=== PATIENT | female | born 1990 | race Caucasian/White ===

== ENCOUNTER 2018-09-16 15:48 | Emergency (ER) | payer SELFPAY ==
[2018-09-16] MEDS ORDERED: IPRATROPIUM/ALBUTEROL 3 ML VIAL NEB ONE (16:00)
[2018-09-16] MEDS: IPRATROPIUM/ALBUTEROL 3 ML VIAL NEB ONE (16:03)
--- NOTE | 2018-09-16 16:26 | ED.PDOC ---
History of Present Illness - General Chief Complaint: Respiratory Problem Stated Complaint: SOB Time Seen by Provider: 09/16/18 16:23 Source: patient Exam Limitations: no limitations - History of Present Illness Comments: Bettina Walter 28 y/o female came to ER with SOB,nasal congestion since yesterday.Has history of asthma and have not use her MDI for the last 10 years Timing/Duration: yesterday Cough Quality/Degree: mild Possible Cause: no prior episodes, allergen exposure Improving Factors: nothing Worsening Factors: nothing Associated Symptoms: shortness of breath, other - see hpi Allergies/Adverse Reactions: Allergies NO KNOWN ALLERGY Allergy (Verified 09/16/18 15:59) Home Medications: Ambulatory Orders Albuterol Sulfate [Albuterol Sulfate Hfa] 108 mcg IN Q4HR PRN #1 aer 09/16/18 predniSONE 10 mg PO BID 7 Days #14 tab 09/16/18 Review of Systems - Review of Systems Respiratory: States: see HPI All other Systems: Reviewed and Negative, No Change from Baseline Past Medical History (General) - Patient Medical History Hx Stroke: No Hx Asthma: Yes - Child, no exacerbations on 10 years Hx of COPD: No Hx Congestive Heart Failure: No Hx Hypertension: No Hx Diabetes: No Surgical History: other - hysterectomy - Vaccination History Hx Tetanus, Diphtheria Vaccination: No Hx Influenza Vaccination: No Hx Pneumococcal Vaccination: No Immunizations Up to Date: No - Social History Hx Tobacco Use: Yes Hx Alcohol Use: Yes Hx Substance Use: No Hx Substance Use Treatment: No Hx Depression: No - Female History Patient is a Female of Child Bearing Age (10 -59 yrs old): Yes Patient : No - Hysterctomy Family Medical History - Family History Mother Family History: Unknown Living Status: Unknown Physical Exam - Physical Exam General Appearance: Alert, Comfortable, No apparent distress Eye Exam: bilateral normal ENT Exam: normal ENT inspection, hearing grossly normal, pharynx normal, nasal congestion Neck: non-tender, full range of motion, supple, normal inspection, trachea midline Respiratory: chest non-tender, no respiratory distress, wheezing Cardiovascular/Chest: normal peripheral pulses, regular rate, rhythm, no murmur Gastrointestinal/Abdominal: normal bowel sounds, non tender, soft Extremity: no pedal edema, no calf tenderness Neurologic: alert, oriented x 3 Skin Exam: normal color, warm/dry Progress - Progress Progress: 09/16/18 16:49 Vital Signs - 24 hr 09/16/18 09/16/18 15:50 16:04 Temperature 97 F L Pulse Rate 66 Pulse Rate [L 80 finger] Respiratory 20 22 Rate Blood Pressure 112/76 [L arm] O2 Sat by Pulse 99 98 Oximetry 09/16/18 17:09 wheezing relieved after 2 nebulizer treatments - EKG/XRAY/CT XRAY: chest - normal Departure - Departure Clinical Impression: Asthma Qualifiers: Asthma severity: unspecified severity Asthma persistence: unspecified Asthma complication type: with acute exacerbation Qualified Code(s): J45.901 - Unspecified asthma with (acute) exacerbation Time of Disposition: 17:05 Disposition: Discharge to Home or Self Care Condition: Good Departure Forms: ED Discharge - Pt. Copy, Patient Portal Self Enrollment Instructions: Asthma, Adult (DC) Prescriptions: Albuterol Sulfate [Albuterol Sulfate Hfa] 108 mcg IN Q4HR PRN #1 aer PRN Reason: Wheezing predniSONE 10 mg PO BID 7 Days #14 tab Home Medications: Ambulatory Orders Albuterol Sulfate [Albuterol Sulfate Hfa] 108 mcg IN Q4HR PRN #1 aer 09/16/18 predniSONE 10 mg PO BID 7 Days #14 tab 09/16/18 Additional Instructions: Return to ER as needed
[2018-09-16] MEDS: methylPREDNISolone SODIUM SUC 125 MG/2 ML VIAL IM ONE (16:36)
--- NOTE | 2018-09-16 16:49 | RAD ---
EXAM DESCRIPTION: Chest,1 View CLINICAL HISTORY: sob COMPARISON: None available TECHNIQUE: AP portable chest FINDINGS: The lungs are clear. There is no infiltrate or effusion. The heart is normal size. IMPRESSION: Normal portable chest Electronically signed by: Yoseph Glasgow MD 09/16/2018 4:47 PM CDT
[2018-09-16] MEDS: LEVALBUTEROL NEBS 1.25 MG/3 ML VIAL NEB ONE (17:13)
[2018-09-16 17:34] VITALS: BP 97/63; TEMP 96.9; O2SAT 99
== END 2018-09-16 17:34 | disposition home or self-care (01) ==
LOC: ER 15:48
DX: J45.901 Unspecified asthma with (acute) exacerbation (principal); Z87.891 Personal history of nicotine dependence
CPT/HCPCS: 71045; 94640; J2930; J7614; J7620

== ENCOUNTER 2018-10-17 18:38 | Emergency (ER) | payer SELFPAY ==
[2018-10-17 18:54] VITALS: BP 99/75; TEMP 97.9; O2SAT 98
[2018-10-17] MEDS ORDERED: IPRATROPIUM/ALBUTEROL 3 ML VIAL NEB ONE (18:54)
[2018-10-17] MEDS ORDERED: MONTELUKAST 10 MG TAB PO ONE (18:54)
[2018-10-17] MEDS ORDERED: predniSONE 20 MG TAB PO ONE (18:54)
--- NOTE | 2018-10-17 18:58 | ED.PDOC ---
History of Present Illness - General Chief Complaint: Respiratory Problem Stated Complaint: allergies induced asthma, bump right arm pit Time Seen by Provider: 10/17/18 18:51 Source: patient Exam Limitations: no limitations - History of Present Illness Initial Comments: the patient is a 28-year-old female presenting to emergency room secondary hilaria asthma and allergy flare for the last 3 or 4 days. She has been taking pjsi-kfi-[id number] antihistamines but has been unable to afford an inhaler or other medications. No fever. She has a runny nose. She has had this happen to her multiple times. Timing/Duration: other - 3or4 days Severity: moderate Improving Factors: nothing Worsening Factors: nothing Associated Symptoms: shortness of breath Allergies/Adverse Reactions: Allergies NO KNOWN ALLERGY Allergy (Verified 09/16/18 15:59) Home Medications: Ambulatory Orders Albuterol Sulfate [Albuterol Sulfate Hfa] 108 mcg IN Q4HR PRN #1 aer 09/16/18 predniSONE 10 mg PO BID 7 Days #14 tab 09/16/18 Albuterol Inhaler [Ventolin Hfa Inhaler] 2 puff INH Q4H PRN #1 inh 10/17/18 Montelukast [Singulair] 10 mg PO DAILY #30 tab 10/17/18 predniSONE [Prednisone] 20 mg PO DAILY #5 tab 10/17/18 Review of Systems - Review of Systems Constitutional: States: malaise EENTM: States: nose congestion Respiratory: States: cough, short of breath, wheezing Cardiology: States: no symptoms reported Gastrointestinal/Abdominal: States: no symptoms reported Genitourinary: States: no symptoms reported Musculoskeletal: States: no symptoms reported Skin: States: no symptoms reported Neurological: States: no symptoms reported Endocrine: States: no symptoms reported All other Systems: No Change from Baseline Past Medical History (General) - Patient Medical History Hx Stroke: No Hx Asthma: Yes - Child, no exacerbations on 10 years Hx of COPD: No Hx Congestive Heart Failure: No Hx Hypertension: No Hx Diabetes: No - Vaccination History Hx Tetanus, Diphtheria Vaccination: No Hx Influenza Vaccination: No Hx Pneumococcal Vaccination: No - Social History Hx Tobacco Use: Yes Hx Alcohol Use: Yes Hx Substance Use: No Hx Substance Use Treatment: No Hx Depression: No - Female History Patient : No - Hysterctomy Family Medical History - Family History Mother Family History: Unknown Living Status: Unknown Physical Exam - Physical Exam General Appearance: Alert, Anxious, No apparent distress Eye Exam: bilateral normal Ears, Nose, Throat: hearing grossly normal, nasal congestion Neck: full range of motion, supple Respiratory: no accessory muscle use - mildoderate, respiratory distress, wheezing Cardiovascular/Chest: normal peripheral pulses, regular rate, rhythm, no edema Peripheral Pulses: radial,right: 2+, radial,left: 2+, dorsalis pedis,right: 2+, dorsalis pedis,left: 2+ Gastrointestinal/Abdominal: non tender, soft Rectal Exam: deferred Back Exam: no CVA tenderness, no vertebral tenderness Extremity: non-tender, normal inspection, no pedal edema, normal capillary refill 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 She is going to be given 2 DuoNeb treatments a dose of prednisone and a dose of Singulair. She'll be written for prednisone for 5 days and Singulair for the next month. She'll be written for an albuterol inhaler to get filled and use as she needs it. She is to follow up with her primary care doctor. She can continue to take vgly-ure-tejtiap antihistamine such as Zyrtec. A humidifier at night may also help reduce symptoms. ER warnings were given for any significant worsening. Departure - Departure Clinical Impression: Seasonal allergies Asthma with exacerbation Qualifiers: Asthma severity: moderate Asthma persistence: persistent Qualified Code(s): J45.41 - Moderate persistent asthma with (acute) exacerbation Disposition: Discharge to Home or Self Care Condition: Fair Departure Forms: ED Discharge - Pt. Copy, Patient Portal Self Enrollment Instructions: DI for Asthma -- Adult Diet: regular diet Activity: increase activity as tolerated Referrals: UNKNOWN,PHYSICIAN [Primary Care Provider] - 1-2 Weeks Prescriptions: Albuterol Inhaler [Ventolin Hfa Inhaler] 2 puff INH Q4H PRN #1 inh PRN Reason: Shortness Of Breath Montelukast [Singulair] 10 mg PO DAILY #30 tab predniSONE [Prednisone] 20 mg PO DAILY #5 tab Home Medications: Ambulatory Orders Albuterol Sulfate [Albuterol Sulfate Hfa] 108 mcg IN Q4HR PRN #1 aer 09/16/18 predniSONE 10 mg PO BID 7 Days #14 tab 09/16/18 Albuterol Inhaler [Ventolin Hfa Inhaler] 2 puff INH Q4H PRN #1 inh 10/17/18 Montelukast [Singulair] 10 mg PO DAILY #30 tab 10/17/18 predniSONE [Prednisone] 20 mg PO DAILY #5 tab 10/17/18 Additional Instructions: the patient is a 28-year-old emale presenting to the emergency room secondary to an asthma exacerbation triggered by allergies. She is going to be given 2 DuoNeb treatments a dose of prednisone and a dose of Singulair. She'll be written for prednisone for 5 days and Singulair for the next month. She'll be written for an albuterol inhaler to get filled and use as she needs it. She is to follow up with her primary care doctor. She can continue to take mjzb-ejv-hzxdekx antihistamine such as Zyrtec. A humidifier at night may also help reduce symptoms. ER warnings were given for any significant worsening.
== END 2018-10-17 19:25 | disposition home or self-care (01) ==
LOC: ER 18:38
DX: J45.41 Moderate persistent asthma with (acute) exacerbation (principal); J30.2 Other seasonal allergic rhinitis; L08.9 Local infection of the skin and subcutaneous tissue, unspecified; Z87.891 Personal history of nicotine dependence
CPT/HCPCS: 94640; 99284; J7512; J7620

== ENCOUNTER 2018-10-21 19:26 | Emergency (ER) | payer SELFPAY ==
--- NOTE | 2018-10-22 03:48 | ED.PDOC ---
History of Present Illness - General Chief Complaint: General Stated Complaint: LWBS - History of Present Illness Allergies/Adverse Reactions: Allergies NO KNOWN ALLERGY Allergy (Verified 09/16/18 15:59) Home Medications: Ambulatory Orders Albuterol Sulfate [Albuterol Sulfate Hfa] 108 mcg IN Q4HR PRN #1 aer 09/16/18 predniSONE 10 mg PO BID 7 Days #14 tab 09/16/18 Albuterol Inhaler [Ventolin Hfa Inhaler] 2 puff INH Q4H PRN #1 inh 10/17/18 Montelukast [Singulair] 10 mg PO DAILY #30 tab 10/17/18 Sulfa/Trimeth 800/160 (Ds) Tab [Bactrim DS Tab] 1 ea PO DAILY #10 tab 10/17/18 predniSONE [Prednisone] 20 mg PO DAILY #5 tab 10/17/18 Past Medical History (General) - Patient Medical History Hx Seizures: No Hx Stroke: No Hx Dementia: No Hx Asthma: Yes - Child, no exacerbations on 10 years Hx of COPD: No Hx Cardiac Disorders: No Hx Congestive Heart Failure: No Hx Pacemaker: No Hx Hypertension: No Hx Thyroid Disease: No Hx Diabetes: No Hx Gastroesophageal Reflux: No Hx Renal Disease: No Hx Cancer: No Hx of HIV: No Hx Hepatitis C: No Hx MRSA: No - Vaccination History Hx Tetanus, Diphtheria Vaccination: No Hx Influenza Vaccination: No Hx Pneumococcal Vaccination: No - Social History Hx Tobacco Use: Yes Hx Chewing Tobacco Use: No Hx Alcohol Use: Yes Hx Substance Use: No Hx Substance Use Treatment: No Hx Depression: No Hx Physical Abuse: No Hx Emotional Abuse: No Hx Suspected Abuse: No - Female History Patient : No - Hysterctomy Family Medical History - Family History Mother Family History: Unknown Living Status: Unknown Departure - Departure Clinical Impression: Patient left without being seen Time of Disposition: 03:43 Disposition: Left Without Being Seen Departure Forms: ED Discharge - Pt. Copy, Patient Portal Self Enrollment Referrals: UNKNOWN,PHYSICIAN [Primary Care Provider] - 1-2 Weeks Home Medications: Ambulatory Orders Albuterol Sulfate [Albuterol Sulfate Hfa] 108 mcg IN Q4HR PRN #1 aer 09/16/18 predniSONE 10 mg PO BID 7 Days #14 tab 09/16/18 Albuterol Inhaler [Ventolin Hfa Inhaler] 2 puff INH Q4H PRN #1 inh 10/17/18 Montelukast [Singulair] 10 mg PO DAILY #30 tab 10/17/18 Sulfa/Trimeth 800/160 (Ds) Tab [Bactrim DS Tab] 1 ea PO DAILY #10 tab 10/17/18 predniSONE [Prednisone] 20 mg PO DAILY #5 tab 10/17/18
== END 2018-10-21 21:00 | disposition left against medical advice (07) ==
LOC: ER 19:26
DX: S99.922A Unspecified injury of left foot, initial encounter (principal); Z53.21 Procedure and treatment not carried out due to patient leaving prior to being seen by health care provider

== ENCOUNTER 2018-12-02 13:37 | Emergency (ER) | payer SELFPAY ==
[2018-12-02] MEDS: SODIUM CHLORIDE 0.9% 1000ML 1,000 ML IVS ONE (14:27)
[2018-12-02] MEDS: ONDANSETRON ODT 8 MG TAB SL ONE (14:28)
--- NOTE | 2018-12-02 14:34 | RAD ---
PROVIDED CLINICAL HISTORY/REASON FOR EXAM: sob, nvd COMPARISON: September 16, 2018 FINDINGS: Frontal and lateral chest radiographs Heart size and pulmonary vessels are within normal limits. There is no pneumothorax or pleural effusion. The lungs are clear bilaterally. The soft tissues are unremarkable. No acute osseous findings. IMPRESSION: No acute cardiopulmonary abnormality. Electronically signed by: Domo Andrew MD 12/02/2018 2:32 PM CDT
[2018-12-02] MEDS ORDERED: IPRATROPIUM/ALBUTEROL 3 ML VIAL NEB ONE (14:39)
[2018-12-02] MEDS: IPRATROPIUM/ALBUTEROL 3 ML VIAL NEB ONE ×2 (14:56→16:09)
[2018-12-02] MEDS: predniSONE 20 MG TAB PO ONE (15:03)
[2018-12-02 15:07] VITALS: TEMP 97.1
--- NOTE | 2018-12-02 15:59 | ED.PDOC ---
History of Present Illness - General Chief Complaint: GI Problem Stated Complaint: diarrhea Time Seen by Provider: 12/02/18 13:40 Source: patient Exam Limitations: no limitations - History of Present Illness Initial Comments: the patient is a 28-year-old female presenting to the emergency room secondary to essentially an asthma exacerbation and gastroenteritis. The p atient has had 3-4 days of an asthma exacerbation. She does not have any asthma medications. She has moderate increased work of breathing and wheezes that can be heard across the room. She has been having some nausea and vomiting and diarrhea for the last 3-4 days. More diarrhea and vomiting. No blood. No definite fevers. Her significant other has similar symptoms. No abdominal pain.the patient is moderately hypotensive here and has been having some dizziness. Timing/Duration: other - 3-4 days Severity: moderate Improving Factors: nothing Worsening Factors: movement Associated Symptoms: loss of appetite, malaise, nausea/vomiting, weakness Allergies/Adverse Reactions: Allergies NO KNOWN ALLERGY Allergy (Verified 12/02/18 14:41) Home Medications: Ambulatory Orders Albuterol Inhaler [Ventolin Hfa Inhaler] 2 puff INH Q4H PRN #1 inh 12/02/18 Montelukast [Singulair] 10 mg PO DAILY #30 tab 12/02/18 Ondansetron Odt [Zofran ODT] 4 mg PO Q8HR PRN #5 tab 12/02/18 predniSONE [Prednisone] 20 mg PO DAILY #3 tab 12/02/18 Review of Systems - Review of Systems Constitutional: States: malaise, weakness EENTM: States: throat pain Respiratory: States: no symptoms reported Cardiology: States: no symptoms reported Gastrointestinal/Abdominal: States: diarrhea, nausea, vomiting Genitourinary: States: no symptoms reported Musculoskeletal: States: no symptoms reported Skin: States: no symptoms reported Neurological: States: headache - mild Endocrine: States: no symptoms reported All other Systems: No Change from Baseline Past Medical History (General) - Patient Medical History Hx Seizures: No Hx Stroke: No Hx Dementia: No Hx Asthma: Yes Hx of COPD: No Hx Cardiac Disorders: No Hx Congestive Heart Failure: No Hx Pacemaker: No Hx Hypertension: No Hx Thyroid Disease: No Hx Diabetes: No Hx Gastroesophageal Reflux: No Hx Renal Disease: No Hx Cancer: No Hx of HIV: No Hx Hepatitis C: No Hx MRSA: No Surgical History: Hysterectomy - Vaccination History Hx Tetanus, Diphtheria Vaccination: Yes Hx Influenza Vaccination: No Hx Pneumococcal Vaccination: No - Social History Hx Tobacco Use: Yes Hx Chewing Tobacco Use: No Hx Alcohol Use: Yes Hx Substance Use: No Hx Substance Use Treatment: No Hx Depression: No Hx Physical Abuse: No Hx Emotional Abuse: No Hx Suspected Abuse: No - Female History Patient : No - Hysterctomy Family Medical History - Family History Mother Family History: Unknown Living Status: Unknown Physical Exam - Physical Exam General Appearance: Alert, No apparent distress, Ill Appearing Eye Exam: bilateral normal Ears, Nose, Throat: hearing grossly normal, normal ENT inspection Neck: full range of motion, supple Respiratory: respiratory distress - mild, decreased breath sounds, accessory muscle use, rhonchi, wheezing Cardiovascular/Chest: normal peripheral pulses, regular rate, rhythm, no edema Peripheral Pulses: radial,right: 2+, radial,left: 2+, dorsalis pedis,right: 2+, dorsalis pedis,left: 2+ Gastrointestinal/Abdominal: non tender, soft Rectal Exam: deferred Back Exam: no CVA tenderness, no vertebral tenderness Extremity: normal range of motion, non-tender, normal inspection, no pedal edema, normal capillary refill Neurologic: compliance 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 II-XII nml as tested, alert, normal mood/affect, oriented x 3 Skin Exam: pallor Comments: Vital Signs - 24 hr 12/02/18 12/02/18 12/02/18 13:51 14:39 14:58 Temperature 96.1 F L Pulse Rate 68 Pulse Rate [ 75 68 Pulse OX] Respiratory 18 18 19 Rate Blood Pressure 94/51 104/70 [L Arm] O2 Sat by Pulse 99 99 99 Oximetry 12/02/18 15:00 Temperature 97.1 F L Pulse Rate Pulse Rate [ 65 Pulse OX] Respiratory 18 Rate Blood Pressure 109/73 [L Arm] O2 Sat by Pulse 98 Oximetry Progress - Progress Progress: 12/02/18 16:01 the patient's a 28-year-old female presenting to the emergency room with acute asthma exacerbation and viral gastroenteritis. The patient does have significant enough dehydration that she was initially moderately hypotensive. She did respond well to a liter of IV fluids. She was also given nausea medications which seemed to help. She responded well also to 2 DuoNeb treatments. The patient will be written for prednisone for 3 days, a Ventolin inhaler and some Singulair for the coming month. She also be written for Zofran for the nausea and vomiting. She can use small doses of Imodium as needed for diarrhea. ER warnings were given for any worsening. Follow up with PCP later in the week. cyril valdez [id number] - Results/Orders Results/Orders: Laboratory Tests 12/02/18 12/02/18 12/02/18 14:00 14:00 14:03 WBC 5.6 RBC 4.53 Hgb 14.5 Hct 42.7 MCV 94.3 MCH 31.9 H MCHC 33.9 RDW 14.0 Plt Count 157 MPV 9.4 Absolute Neuts (auto) 3.10 Absolute Lymphs (auto) 1.60 Absolute Monos (auto) 0.60 Absolute Eos (auto) 0.30 Absolute Basos (auto) 0.00 Neutrophils % 54.6 Lymphocytes % 29.2 Monocytes % 10.4 H Eosinophils % 5.0 Basophils % 0.8 Sodium Potassium Chloride Carbon Dioxide Anion Gap BUN Creatinine BUN/Creatinine Ratio Random Glucose Serum Osmolality Calcium Total Bilirubin AST ALT Alkaline Phosphatase Serum Total Protein Albumin Globulin Albumin/Globulin Ratio Amylase Lipase Urine Color Yellow Urine Appearance Sl cloudy Urine pH 6.0 Ur Specific [place] >= 1.030 Urine Protein Negative Urine Glucose (UA) Negative Urine Ketones Negative Urine Blood Negative Urine Nitrite Negative Urine Bilirubin Negative Urine Urobilinogen 1.0 Ur Leukocyte Esterase Negative Urine RBC 0-1 Urine WBC 0-1 Ur Epithelial Cells 3-5 Calcium Oxalate Crystal 3+ Amorphous Sediment 2+ Urine Bacteria 1+ Urine Mucus Large Urine HCG, Qual Negative Group A Strep Rapid Negative 12/02/18 14:03 WBC RBC Hgb Hct MCV MCH MCHC RDW Plt Count MPV Absolute Neuts (auto) Absolute Lymphs (auto) Absolute Monos (auto) Absolute Eos (auto) Absolute Basos (auto) Neutrophils % Lymphocytes % Monocytes % Eosinophils % Basophils % Sodium 140 Potassium 3.9 Chloride 106 Carbon Dioxide 26 Anion Gap 11.9 L BUN 11 Creatinine 0.79 BUN/Creatinine Ratio 13.9 Random Glucose 79 Serum Osmolality 277.7 Calcium 9.0 Total Bilirubin 0.6 AST 46 H ALT 42 Alkaline Phosphatase 46 Serum Total Protein 7.3 Albumin 3.7 Globulin 3.6 H Albumin/Globulin Ratio 1.0 L Amylase 50 Lipase 48 Urine Color Urine Appearance Urine pH Ur Specific [place] Urine Protein Urine Glucose (UA) Urine Ketones Urine Blood Urine Nitrite Urine Bilirubin Urine Urobilinogen Ur Leukocyte Esterase Urine RBC Urine WBC Ur Epithelial Cells Calcium Oxalate Crystal Amorphous Sediment Urine Bacteria Urine Mucus Urine HCG, Qual Group A Strep Rapid rapid flu is negative. two-view chest x-ray shows no definitive infiltrate. Departure - Departure Clinical Impression: Gastroenteritis Asthma exacerbation Qualifiers: Asthma severity: moderate Asthma persistence: persistent Qualified Code(s): J45.41 - Moderate persistent asthma with (acute) exacerbation Hypotension Qualifiers: Hypotension type: hypotension due to hypovolemia Qualified Code(s): I95.89 - Other hypotension; E86.1 - Hypovolemia Disposition: Discharge to Home or Self Care Condition: Fair Departure Forms: ED Discharge - Pt. Copy, Patient Portal Self Enrollment Instructions: DI for Diarrhea and Traveler's Diarrhea -- Adult, DI for Gastritis, Asthma, Adult (DC) Diet: bland diet Activity: increase activity as tolerated Prescriptions: Ondansetron Odt [Zofran ODT] 4 mg PO Q8HR PRN #5 tab PRN Reason: Nausea--Moderate Albuterol Inhaler [Ventolin Hfa Inhaler] 2 puff INH Q4H PRN #1 inh PRN Reason: Shortness Of Breath Montelukast [Singulair] 10 mg PO DAILY #30 tab predniSONE [Prednisone] 20 mg PO DAILY #3 tab Home Medications: Ambulatory Orders Albuterol Inhaler [Ventolin Hfa Inhaler] 2 puff INH Q4H PRN #1 inh 12/02/18 Montelukast [Singulair] 10 mg PO DAILY #30 tab 12/02/18 Ondansetron Odt [Zofran ODT] 4 mg PO Q8HR PRN #5 tab 12/02/18 predniSONE [Prednisone] 20 mg PO DAILY #3 tab 12/02/18 Additional Instructions: the patient's a 28-year-old female presenting to the emergency room with acute asthma exacerbation and viral gastroenteritis. The patient does have significant enough dehydration that she was initially moderately hypotensive. She did respond well to a liter of IV fluids. She was also given nausea medications which seemed to help. She responded well also to 2 DuoNeb treatments. The patient will be written for prednisone for 3 days, a Ventolin inhaler and some Singulair for the coming month. She also be written for Zofran for the nausea and vomiting. She can use small doses of Imodium as needed for diarrhea. ER warnings were given for any worsening. Follow up with PCP later in the week.
[2018-12-02 16:32] VITALS: BP 98/66; O2SAT 100
== END 2018-12-02 16:25 | disposition home or self-care (01) ==
LOC: ER 13:37
DX: K52.9 Noninfective gastroenteritis and colitis, unspecified (principal); J45.41 Moderate persistent asthma with (acute) exacerbation; I95.89 Other hypotension; E86.1 Hypovolemia; Z87.891 Personal history of nicotine dependence; Z79.899 Other long term (current) drug therapy
CPT/HCPCS: 36415; 71046; 80053; 81001; 81025; 82150; 83690; 85025; 87070; 87502; 87880; 94640; J7030; J7512; J7620

== ENCOUNTER 2018-12-04 12:00 | Emergency (ER) | payer SELFPAY ==
[2018-12-04] MEDS ORDERED: IPRATROPIUM/ALBUTEROL 3 ML VIAL NEB ONE ×2 (12:14→12:53)
[2018-12-04] MEDS ORDERED: SODIUM CHLORIDE 0.9% 1000ML 1,000 ML IVS ONE (12:20)
[2018-12-04] MEDS ORDERED: predniSONE 10 MG TAB PO ONE (12:20)
--- NOTE | 2018-12-04 12:24 | ED.PDOC ---
History of Present Illness - General Chief Complaint: Respiratory Problem Stated Complaint: difficulty breathing,left sided abd pain Time Seen by Provider: 12/04/18 12:13 Source: patient Exam Limitations: no limitations - History of Present Illness Initial Comments: 28 yo F with PMH sig for asthma who presents for wheezing, SOB worsening this morning. Pt was seen in the ED two days ago for similar sx, given prescription for albuterol, zofran, prednisone, singular however does not get paid until Sunday and therefore did not fill them. Pt was doing well with intermittent sx u ntil this morning when sx acutely worsened. Hx of asthma, was well controlled with no medications until this summer when it flared back up and was using medications once a month to control sx. Intermittent mild dry cough. Associated LUQ abd pain she believes is from the intermittent cough and increased WOB, n/v/d. Denies f/c, CP, congestion, runny nose, sore throat, neck pain/stiffness, hematemesis, melena, hematochezia, urinary sx, edema, sick contacts, recent travel. Allergies/Adverse Reactions: Allergies NO KNOWN ALLERGY Allergy (Verified 12/02/18 14:41) Home Medications: Ambulatory Orders Albuterol Inhaler [Ventolin Hfa Inhaler] 2 puff INH Q4H PRN #1 inh 12/02/18 Montelukast [Singulair] 10 mg PO DAILY #30 tab 12/02/18 Ondansetron Odt [Zofran ODT] 4 mg PO Q8HR PRN #5 tab 12/02/18 predniSONE [Prednisone] 20 mg PO DAILY #3 tab 12/02/18 Review of Systems - Review of Systems Constitutional: Denies: chills, fever EENTM: States: no symptoms reported. Denies: ear pain, ear discharge, nose congestion, throat pain Respiratory: States: cough - mild, intermittent, dry, short of breath, wheezing Cardiology: Denies: chest pain, edema, palpitations, syncope Gastrointestinal/Abdominal: States: abdominal pain, diarrhea, nausea, vomiting, other - No blood in stool or vomit Genitourinary: Denies: dysuria, frequency Musculoskeletal: States: no symptoms reported. Denies: muscle stiffness, neck pain Skin: Denies: lesions, rash Neurological: Denies: headache, numbness, weakness Hematologic/Lymphatic: Denies: easy bleeding, swollen glands Past Medical History (General) - Patient Medical History Hx Seizures: No Hx Stroke: No Hx Dementia: No Hx Asthma: Yes Hx of COPD: No Hx Cardiac Disorders: No Hx Congestive Heart Failure: No Hx Pacemaker: No Hx Hypertension: No Hx Thyroid Disease: No Hx Diabetes: No Hx Gastroesophageal Reflux: No Hx Renal Disease: No Hx Cancer: No Hx of HIV: No Hx Hepatitis C: No Hx MRSA: No Surgical History: Hysterectomy - Vaccination History Hx Tetanus, Diphtheria Vaccination: Yes Hx Influenza Vaccination: No Hx Pneumococcal Vaccination: No - Social History Hx Tobacco Use: Yes Hx Chewing Tobacco Use: No Hx Alcohol Use: Yes Hx Substance Use: No Hx Substance Use Treatment: No Hx Depression: No Hx Physical Abuse: No Hx Emotional Abuse: No Hx Suspected Abuse: No - Female History Patient : No - Hysterctomy Family Medical History - Family History Mother Family History: Unknown Living Status: Unknown Physical Exam - Physical Exam General Appearance: Alert, No apparent distress, Well Developed, Well Nourished ENT Exam: normal ENT inspection, other - dry mucous membranes Neck: non-tender, full range of motion, supple Respiratory: no respiratory distress, no accessory muscle use, wheezing - diffuse, other - tachypnea Cardiovascular/Chest: normal peripheral pulses, regular rate, rhythm, no edema, no gallop, no JVD, no murmur Gastrointestinal/Abdominal: non tender, soft, no organomegaly, no pulsatile mass Neurologic: no motor/sensory deficits, alert, oriented x 3 Skin Exam: warm/dry Progress - Progress Progress: Differential Diagnosis: Pneumonia, viral syndrome, asthma exacerbation, dehydration, electrolyte disorder, amongst other considerations 12/04/18 12:15 Pt BP on the lower end of normal, minimally dry on exam, will give bolus alongside breathing treatments, steroids and reassess. Labs and CXR pending. 12/04/18 12:53 Rechecked pt, doing well, wheezing significantly improved but still present, tachypnea resolved after one duoneb, will order another treatment. Labs and CXR pending. Bolus being given at this time. 12/04/18 13:30 Rechecked pt, resting comfortably, BP improved after bolus to 120 systolic. Wheezing resolved, no tachypnea, no resp distress, abd pain resolved, continues to be NT on exam. Awaiting LFT's, consulted SW to discuss financial options to fill prescriptions before Sunday. 12/04/18 14:24 I have explained and reviewed all results with the pt. Pt still has all of her prescriptions from previous visit, encouraged to fill, states she will fill them on Sunday. I explained that emergent conditions may arise and to return to the ER for new, worsening, or any persistent conditions. I've explained the importance of f/u for recheck. All questions and concerns addressed at this time. Pt understands and agrees with plan. Pt well appearing, NAD, is stable for discharge. Milagros Valladares MD Emergency Medicine Physician Billing Number [id number] - Results/Orders Results/Orders: Laboratory Results - last 24 hr 12/04/18 12/04/18 12/04/18 12:49 12:49 12:49 WBC 6.2 RBC 4.31 Hgb 13.3 Hct 40.6 MCV 94.1 MCH 30.9 MCHC 32.8 L RDW 14.0 Plt Count 135 MPV 9.4 Absolute Neuts (auto) 3.70 Absolute Lymphs (auto) 1.60 Absolute Monos (auto) 0.60 Absolute Eos (auto) 0.20 Absolute Basos (auto) 0.00 Neutrophils % 59.8 Lymphocytes % 26.6 Monocytes % 9.8 H Eosinophils % 3.1 Basophils % 0.7 Sodium 139 Potassium 3.6 Chloride 109 Carbon Dioxide 24 Anion Gap 9.6 L BUN 12 Creatinine 0.83 BUN/Creatinine Ratio 14.5 Random Glucose 91 Serum Osmolality 276.9 Calcium 8.7 Total Bilirubin 0.5 Direct Bilirubin < 0.1 Indirect Bilirubin 0.4 AST 34 ALT 36 Alkaline Phosphatase 40 L Serum Total Protein 7.0 Albumin 3.5 CXR: IMPRESSION: No acute cardiopulmonary abnormality. Electronically signed by: Domo Andrew MD 12/04/2018 12:59 PM Departure - Departure Clinical Impression: Acute bronchospasm, Nausea vomiting and diarrhea, Acute abdominal pain Asthma with acute exacerbation Qualifiers: Asthma severity: unspecified severity Asthma persistence: unspecified Qualified Code(s): J45.901 - Unspecified asthma with (acute) exacerbation Time of Disposition: 14:19 Disposition: Discharge to Home or Self Care Health Concerns: Condition: Stable Departure Forms: ED Discharge - Pt. Copy Instructions: DI for Asthma -- Adult Home Medications: Ambulatory Orders Albuterol Inhaler [Ventolin Hfa Inhaler] 2 puff INH Q4H PRN #1 inh 12/02/18 Montelukast [Singulair] 10 mg PO DAILY #30 tab 12/02/18 Ondansetron Odt [Zofran ODT] 4 mg PO Q8HR PRN #5 tab 12/02/18 predniSONE [Prednisone] 20 mg PO DAILY #3 tab 12/02/18 Additional Instructions: Please Follow Up: [facility] As needed, if symptoms worsen Your Primary Care Doctor: In two days, for follow up
--- NOTE | 2018-12-04 13:01 | RAD ---
EXAM DESCRIPTION: Chest,2 Views CLINICAL HISTORY: 28 years Female, SOB COMPARISON: December 02, 2018 FINDINGS: Heart size and pulmonary vessels are within normal limits. There is no pneumothorax or pleural effusion. The lungs are clear bilaterally. The soft tissues are unremarkable. No acute osseous findings. IMPRESSION: No acute cardiopulmonary abnormality. Electronically signed by: Domo Andrew MD 12/04/2018 12:59 PM CDT
[2018-12-04 14:33] VITALS: BP 97/71; TEMP 97.6; O2SAT 99
== END 2018-12-04 14:33 | disposition home or self-care (01) ==
LOC: ER 12:00
DX: J45.901 Unspecified asthma with (acute) exacerbation (principal); R11.2 Nausea with vomiting, unspecified; R19.7 Diarrhea, unspecified; R10.12 Left upper quadrant pain; Z87.891 Personal history of nicotine dependence; Z79.899 Other long term (current) drug therapy
CPT/HCPCS: 36415; 71046; 80048; 80076; 85025; 94640; J7030; J7512; J7620

== ENCOUNTER 2020-01-23 06:21 | Emergency (ER) | payer SELFPAY ==
[2020-01-23] MEDS ORDERED: IBUPROFEN 200 MG TAB PO ONE (06:34)
[2020-01-23] MEDS ORDERED: HYDROcodone 5MG/APAP 325MG 1 EA TAB PO ONE (06:34)
[2020-01-23 06:37] VITALS: O2SAT 98
--- NOTE | 2020-01-23 06:37 | ED.PDOC ---
History of Present Illness - General Time Seen by Provider: 01/23/20 06:29 Source: patient, RN notes reviewed, Vital Signs reviewed, EMS notes reviewed Exam Limitations: no limitations - History of Present Illness Initial Comments: 29 yo F with abscess to left pubic area. Present 4 days, has had prior. Denies any fever, already draining. Timing/Duration: just prior to arrival, this morning Allergies/Adverse Reactions: Allergies NO KNOWN ALLERGY Allergy (Verified 12/02/18 14:41) Home Medications: Ambulatory Orders Albuterol Inhaler [Ventolin Hfa Inhaler] 2 puff INH Q4H PRN #1 inh 12/02/18 Montelukast [Singulair] 10 mg PO DAILY #30 tab 12/02/18 Ondansetron Odt [Zofran ODT] 4 mg PO Q8HR PRN #5 tab 12/02/18 predniSONE [Prednisone] 20 mg PO DAILY #3 tab 12/02/18 Acetaminophen W/ Codeine [Tylenol W/ CODEINE #3] 1 ea PO Q6H PRN #6 ea 01/23/20 Clindamycin HCl 300 mg PO Q6HR #40 cap 01/23/20 Ibuprofen 600 mg PO QID PRN #30 tab 01/23/20 Review of Systems - Review of Systems Constitutional: Denies: chills, fever EENTM: Denies: blurred vision, ear discharge Respiratory: Denies: cough, short of breath Cardiology: Denies: chest pain, palpitations Gastrointestinal/Abdominal: Denies: abdominal pain, diarrhea, nausea, vomiting Genitourinary: Denies: discharge, frequency, hematuria Musculoskeletal: Denies: joint pain, joint swelling, muscle pain, neck pain Skin: States: see HPI, rash Neurological: Denies: headache, numbness, tingling, tremors Past Medical History (General) - Patient Medical History Hx Seizures: No Hx Stroke: No Hx Dementia: No Hx Asthma: Yes Hx of COPD: No Hx Cardiac Disorders: No Hx Congestive Heart Failure: No Hx Pacemaker: No Hx Hypertension: No Hx Thyroid Disease: No Hx Diabetes: No Hx Gastroesophageal Reflux: No Hx Renal Disease: No Hx Cancer: No Hx of HIV: No Hx Hepatitis C: No Hx MRSA: No - Vaccination History Hx Tetanus, Diphtheria Vaccination: Yes Hx Influenza Vaccination: No Hx Pneumococcal Vaccination: No - Social History Hx Tobacco Use: Yes Hx Chewing Tobacco Use: No Hx Alcohol Use: Yes Hx Substance Use: No Hx Substance Use Treatment: No Hx Depression: No Hx Physical Abuse: No Hx Emotional Abuse: No Hx Suspected Abuse: No - Female History Patient : No - Hysterctomy Family Medical History - Family History Mother Family History: Unknown Living Status: Unknown Physical Exam - Physical Exam General Appearance: Alert, Comfortable, No apparent distress, Well Developed, Well Groomed, Well Hydrated, Well Nourished Eyes, Ears, Nose, Throat Exam: PERRL/EOMI, normal ENT inspection Neck: non-tender, full range of motion, supple, normal inspection Cardiovascular/Chest: normal peripheral pulses, regular rate, rhythm, no edema, no gallop, no JVD, no murmur Respiratory: chest non-tender, lungs clear, normal breath sounds, no respiratory distress, no accessory muscle use Gastrointestinal/Abdominal: normal bowel sounds, non tender, soft, no organomegaly, no pulsatile mass Back Exam: normal inspection, no CVA tenderness Extremity: normal range of motion, non-tender, normal inspection, no pedal edema, no calf tenderness, normal capillary refill 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 some drainage noted, also small 1 cm area of back of thigh induration and tendernation, no erythema or fluctance Skin Problem Location: torso Skin Character: abscess, erythema Progress - Progress Progress: 01/23/20 06:40 patient refusing I&D at this time. I feel that the thigh does not need I&D. After rediscussion patient agrees to I&D. See below for procedure. Two additional other areas were viewed with US (lateral left pelvis and right posterior thigh) no, drainable collection noted. Will send home on antibiotics. The data reviewed when caring for this patient included: nurse notes, prior records, etc. The history and assessments from nurses notes were reviewed and considered, and the patient's home medication list was also reviewed and considered. My assessment and the results of testing completed here in the ED were discussed with the patient. All questions were answered, and they express understanding of my assessment and the plan. They have been instructed to return if their symptoms worsen, and have been asked to follow up with their primary care physician to recheck today's presenting complaint. Strict return precautions given. I have reviewed medication, benefits, alternatives and side effects. Patient decided to proceed with medication. Barbara Reyes DO #[id number] 01/23/20 06:59 Procedures - Incision and Drainage #1 Site: left inguinal area Procedure and Prep: betadine prep, sterile dressings applied, irrigated, pus drained Blade Size: 11 Departure - Departure Clinical Impression: Abscess Time of Disposition: 06:37 Disposition: Discharge to Home or Self Care Instructions: Cellulitis and Erysipelas (Skin Infections), Skin Abscess Diet: resume usual diet Activity: ambulate only with walker Prescriptions: Clindamycin HCl 300 mg PO Q6HR #40 cap Ibuprofen 600 mg PO QID PRN #30 tab PRN Reason: Pain Acetaminophen W/ Codeine [Tylenol W/ CODEINE #3] 1 ea PO Q6H PRN #6 ea PRN Reason: Pain Home Medications: Ambulatory Orders Albuterol Inhaler [Ventolin Hfa Inhaler] 2 puff INH Q4H PRN #1 inh 12/02/18 Montelukast [Singulair] 10 mg PO DAILY #30 tab 12/02/18 Ondansetron Odt [Zofran ODT] 4 mg PO Q8HR PRN #5 tab 12/02/18 predniSONE [Prednisone] 20 mg PO DAILY #3 tab 12/02/18 Acetaminophen W/ Codeine [Tylenol W/ CODEINE #3] 1 ea PO Q6H PRN #6 ea 01/23/20 Clindamycin HCl 300 mg PO Q6HR #40 cap 01/23/20 Ibuprofen 600 mg PO QID PRN #30 tab 01/23/20
[2020-01-23] MEDS ORDERED: CLINDAMYCIN HCL CAP 150 MG CAP PO ONE (06:38)
[2020-01-23] MEDS ORDERED: LIDOCAINE 1% W/ EPINEPHRINE 20 ML VIAL INJ ONE ×2 (06:41→06:48)
[2020-01-23 07:05] VITALS: BP 112/68; TEMP 97.9
== END 2020-01-23 07:05 | disposition home or self-care (01) ==
LOC: ER 06:21
DX: L02.214 Cutaneous abscess of groin (principal); R23.4 Changes in skin texture; J45.909 Unspecified asthma, uncomplicated; Z87.891 Personal history of nicotine dependence